=== PATIENT | male | born 1955 | race Caucasian/White ===

== ENCOUNTER → 2022-01-18 | Outpatient (CLI) | payer MEDICARE, OTHER, SELFPAY ==
--- NOTE | 2022-01-18 15:37 | NEURO ---
NCS and/or EMG Patient Report Ordering Doctor: Bebeto London DATE OF SERVICE: 01/18/22 [place] presents for electrodiagnostic testing of the right upper limb. He reports pain, numbness and tingling in the right hand. Electrodiagnostic findings: Right median motor nerve demonstrates prolonged latency with normal amplitude and reduced conduction velocity. Normal right ulnar motor response, including conduction across the elbow. Prolonged right median and ulnar F-wave. Absent right median sensory latency at the wrist and palm. On needle EMG, all muscles tested in the right upper limb showed no evidence of denervation with normal motor unit action potentials. Electrodiagnostic impression: This is an abnormal study in the right upper limb. 1. Electrodiagnostic findings demonstrate right-sided median mononeuropathy. This is consistent with a severe right carpal tunnel syndrome
== END | disposition home or self-care (01) ==
LOC: PSN 14:14
PROVIDERS: Referring Provider Physician Assistant; Visit Provider Physician Assistant
DX: R20.2 Paresthesia of skin (principal)
CPT/HCPCS: 95886; 95910

== ENCOUNTER → 2022-01-30 | Outpatient (CLI) | payer MEDICARE, OTHER, SELFPAY ==
--- NOTE | 2022-01-30 08:11 | EKG12_ITS ---
Test Reason : PREOP Blood Pressure : / mmHG Vent. Rate : 089 BPM Atrial Rate : 089 BPM P-R Int : 142 ms QRS Dur : 112 ms QT Int : 392 ms P-R-T Axes : 011 018 049 degrees QTc Int : 476 ms Sinus rhythm with occasional Premature ventricular complexes Otherwise normal ECG Confirmed by LUIS PETERS, MABLE ([id number]), photography editor RUPESH MEDEIROS ([id number]) on 01/31/2022 8:56:15 AM Referred By: Mingo Crabtree Confirmed By:MABLE SMITH MD
[2022-01-30 08:29] LABS: Hematocrit 38.8 % (40-54); Hemoglobin 13.7 g/dL (13.0-16.5); Mean Corp Hgb Conc 35.3 g/dL (32-36); Mean Corpuscular Volume 96.3 fL (80-94); Mean Platelet Vol. 8.9 fl (6.2-12.0); Platelet Count 254 K/mm3 (150-450); RBC Distribution Width CV 12.2 % (11.6-14.6); RBC Distribution Width SD 42.8 fl (35.1-43.9); Red Blood Count 4.03 M/mm3 (4.6-6.2); White Blood Count 4.2 K/mm3 (4.4-11.0)
[2022-01-30 08:47] LABS: Anion Gap 11 (5-15); BUN 14 mg/dL (7-18); BUN/Creat Ratio 12.4 RATIO (10-20); Calcium,Total 9.2 mg/dL (8.5-10.1); Chloride 92 mmol/L (98-107); Creatinine, Serum 1.13 mg/dL (0.70-1.30); EST Glomerular Filtration Rate 69 mL/min (>60); Est Glom Filt Rate - Afr Amer 83 mL/min (>60); Glucose 117 mg/dL (74-106); Potassium 3.9 mmol/L (3.5-5.1); Sodium Level 133 mmol/L (136-145)
[2022-01-30 09:07] LABS: Hemoglobin A1c 5.2 % (3.8-5.6)
== END | disposition home or self-care (01) ==
LOC: PSN 07:58
PROVIDERS: Physician Assistant; Referring Provider Orthopaedic Surgery; Visit Provider Orthopaedic Surgery
DX: Z01.818 Encounter for other preprocedural examination (principal); E11.9 Type 2 diabetes mellitus without complications; Z01.810 Encounter for preprocedural cardiovascular examination
CPT/HCPCS: 36415; 80048; 83036; 85027; 93005

== ENCOUNTER → 2022-08-29 | Outpatient (CLI) | payer MEDICARE, OTHER, SELFPAY ==
--- NOTE | 2022-08-29 10:30 | PET_ITS ---
EXAMINATION: FDG PET/CT INDICATIONS: 67-year-old male with a history of primary brain carcinoma, presenting for apparent staging examination. COMPARISON EXAMINATION: None available INDEX LESION SIZE SUV INTERPRETATION Left mid posterior lung field, left lower lobe 15.2 mm 2.6 May necessitate histopathologic evaluation, short-term reevaluation with FDG-PET CT imaging and/or CT of the chest is recommended ? Subcarinal mediastinum ? 2.3 max Quantitative criteria for viable neoplasm are not fulfilled ? NON-INDEX LESION ? ? ? Left proximal femoral diaphysis ? 1.8 max Quantitative criteria for viable neoplasm are not fulfilled TECHNIQUE: Following the intravenous administration of 14 mCi of F-18 deoxyglucose via the right antecubital fossa, multiplanar image acquisitions of the head, neck, chest, abdomen and pelvis to the level of the midthigh, obtained at one-hour post radiopharmaceutical administration contemporaneously interpreted with the current CT of the head, neck, chest, abdomen and pelvis dated via coregistration reveal: SERUM GLUCOSE LEVEL: 130 mg/dL HEIGHT: 70 inches WEIGHT: 170 pounds FINDINGS: HEAD/NECK: There is no evidence of abnormal increased glucose metabolism in the pharyngeal mucosal space, parapharyngeal space, oropharynx, bilateral-lateral and anterior neck, hypopharynx and distribution of the larynx. The visualized portion of the cerebral cortical-subcortical structures demonstrate symmetric and preserved glucose metabolism. Post-therapeutic changes are defined in the left cerebral cortex. There is otherwise symmetric glucose metabolism noted in the visualized cortical and sub-cortical structures. CHEST: Diffuse, non-nodular, increased radiopharmaceutical concentration noted in the left mid posterior lung zone adjacent to the pleural interface. The calculated standard uptake value is 2.6. Quantitative criteria for viable neoplasm are not fulfilled. Increased FDG uptake is noted in the subcarinal mediastinum involving lymph node station VII. The calculated maximum standard uptake value is 2.3. There is visualized radiopharmaceutical concentration noted in the left ventricular myocardium, consistent with the [place]. CT of the chest demonstrates the following anatomic characteristics: Atherosclerotic calcification is defined in the thoracic aorta without evidence of dilatation, aneurysm formation. Coronary arterial calcification is observed. Bilateral hemithorax pleural effusions reveal no evidence of quantitatively significant increased FDG uptake. Pericardial effusion is ametabolic. Mediastinal and bilateral axillary soft tissue densities are ametabolic. ABDOMEN/PELVIS: Normal physiologic distribution of the radiopharmaceutical is identified in the hepatic (3.5) and splenic parenchyma, both renal units, urinary bladder, and visualized intestinal tract. Diffuse intestinal tract is identified in all four quadrants of the abdomen and pelvis. CT of the abdomen and pelvis is remarkable for the following: Atherosclerotic calcification is defined in the abdominal aorta without evidence of dilatation, aneurysm formation. Abdominal-pelvic arterial calcification is observed. Right-left inguinal soft tissue densities are ametabolic. Calcified phlebolith formation is noted in the bilateral lower hemipelvis. Increased glucose metabolism is identified in the left proximal femoral diaphysis with a calculated standard uptake value of 1.8. Quantitative criteria for viable neoplasm are not fulfilled. SKELETAL: There is no evidence of quantitatively significant enhanced glucose metabolism on meticulous inspection of the appendicular and axial skeletal structures. Degenerative changes defined in the thoracic and lumbar spine demonstrate no evidence of increased glucose metabolism. There are no sclerotic, mixed sclerotic-lytic, or primarily lytic changes defined in the axial skeletal structures with evidence of increased FDG uptake. PET/PET/CT Tumor Base -Thigh Init IMPRESSION: 1. Increased radiopharmaceutical concentration manifest in the left mid posterior lung field, left lower lobe, may necessitate histopathologic investigation secondary to the quantitative degree of uptake. 2. If a conservative management approach is undertaken regarding the left lung abnormality, repeat FDG-PET CT imaging in 3-6 months is recommended to ensure stability, involution. 3. Enhanced tracer uptake noted in the subcarinal mediastinum does not fulfill quantitative criteria for viable neoplasm. 4. Facilitated FDG identified in the left proximal femoral diaphysis does not fulfill quantitative criteria for viable neoplasia. (Britney et al, Clinical Nuclear Medicine, 29:161, 2004). Electronic Signature Rocky Roman D.O. Accurate Quantification of SUVs for this report are calculated using the exclusive [employer]. ([place] Patent No. [id number] B2 [phone] [place] patent [phone]). Standardization and correction of the FDG SUV metric via [employer] technology allow for vendor non-specific objective quantitative examination comparison and optimization of the sensitivity and specificity of the FDG PET-CT examination. Electronically Signed: Rocky Roman, at 7:53 EDT ,
== END | disposition home or self-care (01) ==
LOC: ONC 10:15
PROVIDERS: PCP Family Medicine
DX: C79.31 Secondary malignant neoplasm of brain (principal)
CPT/HCPCS: 78815; A9552